=== PATIENT | female | born 2000 | race Caucasian/White ===

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

== ENCOUNTER 2018-04-10 20:39 | Emergency (ER) | payer BC ==
[~2018-04-10] VITALS: Ht 157.5 cm; Wt 54.4 kg
[2018-04-10 21:03] VITALS: BP_SYST 110
[2018-04-10] MEDS ORDERED: IBUPROFEN 800 MG TABLET PO ONE (21:30)
[2018-04-10 22:05] VITALS: BP_SYST 113
== END 2018-04-10 22:05 | disposition home or self-care (01) ==
LOC: SED 20:39
DX: S93.401A Sprain of unspecified ligament of right ankle, initial encounter (principal); Z88.6 Allergy status to analgesic agent; W18.39XA Other fall on same level, initial encounter; Y93.89 Activity, other specified; Y92.89 Other specified places as the place of occurrence of the external cause; Y99.8 Other external cause status
CPT/HCPCS: 99284

== ENCOUNTER 2018-05-31 11:08 | Emergency (ER) | payer BC ==
[~2018-05-31] VITALS: Ht 157.5 cm; Wt 54.4 kg
[2018-05-31 11:23] VITALS: BP_SYST 123
[2018-05-31 12:15] LABS: BASOPHILS % (AUTO) 0.5 % (0.0-2.0); EOSINOPHILS % (AUTO) 0.2 % (0.0-4.0); HEMATOCRIT 43.6 % (36-48); HEMOGLOBIN 14.4 g/dL (12.0-16.0); LYMPHOCYTES # (AUTO) 1.6 K/uL (1.0-5.5); LYMPHOCYTES % (AUTO) 27.4 % (20.5-51.5); MEAN CORPUSCULAR HEMOGLOBIN 31 pg (27-31); MEAN CORPUSCULAR HGB CONC 33 % (32-36); MEAN CORPUSCULAR VOLUME 93 fL (79.0-98.0); MONOCYTES # (AUTO) 0.5 K/uL (0.0-1.0); MONOCYTES % (AUTO) 8.4 % (1.7-9.3); NEUTROPHILS # (AUTO) 3.6 K/uL (1.8-7.7); NEUTROPHILS % (AUTO) 63.5 % (40.0-70.0); PLATELET COUNT (AUTO) 206 K/uL (130-430); RED BLOOD CELL COUNT(AUTO) 4.68 MIL/uL (4.2-6.2); RED CELL DISTRIBUTION WIDTH 12.1 % (9.0-15.0); WHITE BLOOD COUNT (AUTO) 5.7 K/uL (4.5-11.0)
[2018-05-31 12:24] LABS: CALCIUM 9.5 mg/dL (8.4-11.0); CREATININE 0.79 mg/dL (0.55-1.30); POTASSIUM 3.9 mmol/L (3.5-5.1)
[2018-05-31 12:25] LABS: BILIRUBIN,URINE NEGATIVE (NEGATIVE); BLOOD, URINE NEGATIVE (NEGATIVE); CLARITY/URINE CLEAR (CLEAR); COLOR,URINE YELLOW (YELLOW); GLUCOSE,URINE NEGATIVE (NEGATIVE); KETONES,URINE NEGATIVE (NEGATIVE); LEUKOCYTE ESTERASE ,URINE NEGATIVE (NEGATIVE); NITRITE, URINE NEGATIVE (NEGATIVE); PROTEIN URINE NEGATIVE (NEGATIVE); UROBILINOGEN,URINE 0.2 (0.2-1.0)
[2018-05-31] MEDS: IBUPROFEN 800 MG TABLET PO ONE (13:22)
[2018-05-31 14:30] VITALS: BP_SYST 120
== END 2018-05-31 14:30 | disposition home or self-care (01) ==
LOC: SED 11:08
DX: N83.209 Unspecified ovarian cyst, unspecified side (principal); Z88.6 Allergy status to analgesic agent
CPT/HCPCS: 36415; 76830-TC; 76857; 80048; 81003; 81025; 85025; 99284

== ENCOUNTER 2018-08-28 14:52 | Emergency (ER) | payer BC ==
[~2018-08-28] VITALS: Ht 157.5 cm; Wt 54.4 kg
[2018-08-28 15:15] VITALS: BP_SYST 124
[2018-08-28] MEDS ORDERED: NACL 0.9% 1,000 ML IV ONE (15:30)
[2018-08-28] MEDS ORDERED: KETOROLAC TROMETHAMINE 15 MG VIAL IVP ONE (15:30)
[2018-08-28] MEDS ORDERED: ONDANSETRON HCL 4 MG/2 ML VIAL IVP ONE (15:30)
[2018-08-28 15:36] LABS: BILIRUBIN,URINE NEGATIVE (NEGATIVE); BLOOD, URINE 3+ (NEGATIVE); CLARITY/URINE CLEAR (CLEAR); COLOR,URINE YELLOW (YELLOW); GLUCOSE,URINE NEGATIVE (NEGATIVE); KETONES,URINE 1+ (NEGATIVE); LEUKOCYTE ESTERASE ,URINE NEGATIVE (NEGATIVE); NITRITE, URINE NEGATIVE (NEGATIVE); PH,URINE 5.5 (5.0-8.0); PROTEIN URINE TRACE (NEGATIVE); UROBILINOGEN,URINE 0.2 (0.2-1.0)
[2018-08-28 15:42] LABS: RBC,URINE >100 /HPF (0-3)
[2018-08-28 15:43] LABS: BACTERIA,URINE FEW /HPF (None Seen); WBC,URINE 0-3 /HPF (0-3)
[2018-08-28 16:04] LABS: HEMATOCRIT 41.3 % (36-48); HEMOGLOBIN 14.3 g/dL (12.0-16.0); MEAN CORPUSCULAR HEMOGLOBIN 32 pg (27-31); MEAN CORPUSCULAR VOLUME 91 fL (79.0-98.0); RED BLOOD CELL COUNT(AUTO) 4.52 MIL/uL (4.2-6.2); WHITE BLOOD COUNT (AUTO) 8.8 K/uL (4.5-11.0)
[2018-08-28 16:05] LABS: BASOPHILS % (AUTO) 0.3 % (0.0-2.0); EOSINOPHILS % (AUTO) 0.1 % (0.0-4.0); LYMPHOCYTES # (AUTO) 1.3 K/uL (1.0-5.5); MEAN CORPUSCULAR HGB CONC 35 % (32-36); MONOCYTES # (AUTO) 0.6 K/uL (0.0-1.0); MONOCYTES % (AUTO) 6.8 % (1.7-9.3); NEUTROPHILS # (AUTO) 6.9 K/uL (1.8-7.7); NEUTROPHILS % (AUTO) 77.8 % (40.0-70.0); PLATELET COUNT (AUTO) 258 K/uL (130-430); RED CELL DISTRIBUTION WIDTH 12.7 % (9.0-15.0)
[2018-08-28 16:11] LABS: PROTHROMBIN TIME 10.4 SECS (9.5-12.5)
[2018-08-28 16:12] LABS: CALCIUM 9.4 mg/dL (8.4-11.0); CREATININE 0.81 mg/dL (0.55-1.30); POTASSIUM 3.7 mmol/L (3.5-5.1)
[2018-08-28 16:17] LABS: ALBUMIN 4.3 g/dL (3.4-4.8); TOTAL BILIRUBIN 0.8 mg/dL (0.0-1.0)
[2018-08-28] MEDS ORDERED: HYDROcodone/ACETAMIN 5-325 MG TAB (NORCO/ VICODIN) PO ONE (16:45)
[2018-08-28 17:48] VITALS: BP_SYST 103
== END 2018-08-28 17:48 | disposition home or self-care (01) ==
LOC: SED 14:52
DX: R31.9 Hematuria, unspecified (principal); R10.9 Unspecified abdominal pain; Z88.6 Allergy status to analgesic agent
CPT/HCPCS: 36415; 74176; 80053; 81000; 83690; 85025; 85610; 96374; 96375; 99284; J1885; J2405; J7030

== ENCOUNTER 2018-12-29 22:14 | Emergency (ER) | payer BC ==
[~2018-12-29] VITALS: Ht 157.5 cm; Wt 63.5 kg
[2018-12-29 22:20] VITALS: BP_SYST 120
--- NOTE | 2018-12-29 22:40 | NUR ---
Patient to ER bed 2 to gown for evaluation. Side rails up.
--- NOTE | 2018-12-29 22:42 | NUR ---
Pt C/O of nausea and gradual onset of lower back pain x 2 weeks. Pt states she is 1 week late on her period and urine has been collected of test. Pt denies any painful urination, frequency, vomiting, fever or any other symptoms at this time. Will continue to monitor.
--- NOTE | 2018-12-29 23:10 | NUR ---
ER Dr. Piper at bedside examining patient.
[2018-12-29] MEDS ORDERED: KETOROLAC TROMETHAMINE 60 MG/2 ML VIAL IM ONE (23:30)
--- NOTE | 2018-12-29 23:40 | NUR ---
Pt states the Toradol is effective and her back pain is now 2/10. Will continue to monitor
--- NOTE | 2018-12-30 | NUR ---
Patient given written and verbal discharge instructions and verbalizes understanding. ER MD discussed with patient the results and treatment provided. Patient in stable condition. ID arm band removed. Rx of Naprosyn given. Patient educated on pain management and to follow up with PMD. Pain Scale 0. Opportunity for questions provided and answered. Medication side effect fact sheet provided.
[2018-12-30 00:02] VITALS: BP_SYST 120
[2018-12-30 00:21] LABS: BILIRUBIN,URINE NEGATIVE (NEGATIVE); BLOOD, URINE NEGATIVE (NEGATIVE); CLARITY/URINE CLEAR (CLEAR); COLOR,URINE YELLOW (YELLOW); GLUCOSE,URINE NEGATIVE (NEGATIVE); KETONES,URINE NEGATIVE (NEGATIVE); LEUKOCYTE ESTERASE ,URINE NEGATIVE (NEGATIVE); NITRITE, URINE NEGATIVE (NEGATIVE); PROTEIN URINE NEGATIVE (NEGATIVE); UROBILINOGEN,URINE 0.2 (0.2-1.0)
== END 2018-12-30 | disposition home or self-care (01) ==
LOC: SED 22:14
DX: S33.5XXA Sprain of ligaments of lumbar spine, initial encounter (principal); Z88.6 Allergy status to analgesic agent; X58.XXXA Exposure to other specified factors, initial encounter; Y93.89 Activity, other specified; Y92.89 Other specified places as the place of occurrence of the external cause; Y99.8 Other external cause status
CPT/HCPCS: 81003; 81025; 96372; 99283; J1885

== ENCOUNTER 2019-02-08 20:44 | Emergency (ER) | payer BC ==
[~2019-02-08] VITALS: Ht 160 cm; Wt 59.0 kg
[2019-02-08 20:50] VITALS: BP_SYST 111
[2019-02-08] MEDS ORDERED: LORazepam 1 MG TABLET PO ONE (21:15)
[2019-02-08 21:43] VITALS: BP_SYST 111
== END 2019-02-08 21:43 | disposition home or self-care (01) ==
LOC: SED 20:44
DX: F41.9 Anxiety disorder, unspecified (principal); R07.89 Other chest pain; Z88.6 Allergy status to analgesic agent
CPT/HCPCS: 99284

== ENCOUNTER 2019-05-16 17:43 | Emergency (ER) | payer BC ==
[~2019-05-16] VITALS: Ht 157.5 cm; Wt 63.0 kg
[2019-05-16 17:45] VITALS: BP_SYST 102
--- NOTE | 2019-05-16 17:45 | NUR ---
Patient triaged and placed in waiting room. VSS and patient appears in no acute distress at this time. Accompanied by SPOUSE, awaiting available bed, and MD notified of need for MSE.
[2019-05-16 18:53] LABS: BASOPHILS % (AUTO) 0.3 % (0.0-2.0); EOSINOPHILS % (AUTO) 0.2 % (0.0-4.0); HEMOGLOBIN 12.5 g/dL (12.0-16.0); LYMPHOCYTES # (AUTO) 1.2 K/uL (1.0-5.5); MEAN CORPUSCULAR HEMOGLOBIN 33 pg (27-31); MEAN CORPUSCULAR HGB CONC 36 % (32-36); MEAN CORPUSCULAR VOLUME 92 fL (79.0-98.0); MONOCYTES # (AUTO) 0.6 K/uL (0.0-1.0); MONOCYTES % (AUTO) 7.5 % (1.7-9.3); NEUTROPHILS # (AUTO) 6.5 K/uL (1.8-7.7); PLATELET COUNT (AUTO) 184 K/uL (130-430); RED BLOOD CELL COUNT(AUTO) 3.81 MIL/uL (4.2-6.2); RED CELL DISTRIBUTION WIDTH 12.9 % (9.0-15.0); WHITE BLOOD COUNT (AUTO) 8.3 K/uL (4.5-11.0)
--- NOTE | 2019-05-16 19:07 | NUR ---
Patient to ER bed 5 to gown for evaluation. Side rails up.
[2019-05-16 19:10] LABS: CREATININE 0.78 mg/dL (0.55-1.30); POTASSIUM 4.3 mmol/L (3.5-5.1)
[2019-05-16] MEDS ORDERED: NACL 0.9% 1,000 ML IV ONE (19:15)
[2019-05-16 19:20] LABS: BILIRUBIN,URINE NEGATIVE (NEGATIVE); BLOOD, URINE NEGATIVE (NEGATIVE); CLARITY/URINE CLEAR (CLEAR); COLOR,URINE YELLOW (YELLOW); GLUCOSE,URINE TRACE (NEGATIVE); KETONES,URINE 1+ (NEGATIVE); LEUKOCYTE ESTERASE ,URINE NEGATIVE (NEGATIVE); NITRITE, URINE NEGATIVE (NEGATIVE); PH,URINE 6.5 (5.0-8.0); PROTEIN URINE NEGATIVE (NEGATIVE)
[2019-05-16] MEDS ORDERED: ACETAMINOPHEN 500 MG TABLET PO ONE (19:30)
[2019-05-16 19:37] LABS: ALBUMIN 3.5 g/dL (3.4-4.8); TOTAL BILIRUBIN 0.4 mg/dL (0.0-1.0)
--- NOTE | 2019-05-16 20:05 | NUR ---
Dr. Kumari bedside for Pt eval
--- NOTE | 2019-05-16 20:15 | NUR ---
Pt BIB family to ED C/O sudden onset of syncope today at work. She reports that the episode lasted for a few seconds and was witnessed by her co-worker. She denies any head injury at the time since she was able to grab onto an object for support. No other complaints and or injuries noted VSS no s/s of acute distress Resting on gurney with rails up
[2019-05-16 20:42] VITALS: BP_SYST 132
--- NOTE | 2019-05-16 20:42 | NUR ---
Patient given written and verbal discharge instructions and verbalizes understanding. ER MD discussed with patient the results and treatment provided. Patient in stable condition. ID arm band removed. IV catheter removed intact and dressing applied, no active bleeding. Patient educated on pain management and to follow up with PMD. Pain Scale 0/10 Opportunity for questions provided and answered.
== END 2019-05-16 20:42 | disposition home or self-care (01) ==
LOC: SED 17:43
DX: O26.891 Other specified pregnancy related conditions, first trimester (principal); R55 Syncope and collapse; E86.0 Dehydration; Z3A.13 13 weeks gestation of pregnancy; Z88.5 Allergy status to narcotic agent
CPT/HCPCS: 36415; 76805; 80053; 81003; 81025; 84702; 85025; 86900; 86901; 93005; 99284; J7030

== ENCOUNTER 2019-07-03 18:11 | Observation (INO) | payer BC ==
[~2019-07-03] VITALS: Ht 157.5 cm; Wt 64.9 kg
== END 2019-07-03 19:00 | disposition home or self-care (01) ==
LOC: SPU 18:11
PROVIDERS: ADMIT Specialist; ATTEND Specialist
DX: O99.612 Diseases of the digestive system complicating pregnancy, second trimester (principal); K62.5 Hemorrhage of anus and rectum; Z3A.20 20 weeks gestation of pregnancy
CPT/HCPCS: G0378

== ENCOUNTER 2019-10-06 22:40 | Observation (INO) | payer BC | END 2019-10-07 00:20 | disposition home or self-care (01) | LOC: SPU 22:40 | PROVIDERS: ADMIT Obstetrics & Gynecology; ATTEND Obstetrics & Gynecology | DX: O62.9 Abnormality of forces of labor, unspecified (principal); Z3A.33 33 weeks gestation of pregnancy | CPT/HCPCS: 81002; G0378 ==

== ENCOUNTER 2020-03-30 10:06 | Emergency (ER) | payer BC ==
[~2020-03-30] VITALS: Ht 157.5 cm; Wt 72.6 kg
[2020-03-30 10:09] VITALS: BP_SYST 116
[2020-03-30] MEDS ORDERED: HYDROcodone/ACETAMIN 7.5-325 MG TAB PO ONE (10:45)
[2020-03-30] MEDS ORDERED: IBUPROFEN 800 MG TABLET PO ONE (10:45)
[2020-03-30] MEDS ORDERED: levoFLOXacin 500 MG TABLET PO ONE (10:45)
[2020-03-30 10:56] VITALS: BP_SYST 116
== END 2020-03-30 10:56 | disposition home or self-care (01) ==
LOC: SED 10:06
DX: N39.0 Urinary tract infection, site not specified (principal); M54.5 Low back pain; Z88.6 Allergy status to analgesic agent
CPT/HCPCS: 81002; 81025; 99284

== ENCOUNTER 2020-05-18 15:01 | Emergency (ER) | payer BC ==
[~2020-05-18] VITALS: Ht 157.5 cm; Wt 64.4 kg
[2020-05-18 15:06] VITALS: BP_SYST 130
--- NOTE | 2020-05-18 15:17 | NUR ---
AMBULATED TO BED 2
--- NOTE | 2020-05-18 15:20 | NUR ---
Pt bib from home with c/o left flank pain 8/10, hematuria and urinary retention x 2days. Reports h/o kidney stones. V/S stable, pt is afebrile. Currently resting in bed, will continue to monitor.
--- NOTE | 2020-05-18 15:47 | NUR ---
ER Dr. Ayala at bedside examining patient.
[2020-05-18] MEDS ORDERED: NACL 0.9% 1,000 ML IV ONE (16:00)
[2020-05-18] MEDS ORDERED: KETOROLAC TROMETHAMINE 30 MG VIAL IVP ONE (16:00)
[2020-05-18] MEDS ORDERED: ONDANSETRON HCL 4 MG/2 ML VIAL IVP ONE (16:00)
--- NOTE | 2020-05-18 16:41 | NUR ---
# 20 gauge angiocath placed to RAC. Use of asceptic technique. Opsite placed over site. Blood return noted. Blood for lab drawn from site. Flushed with 10 cc of normal saline. No evidence of infiltration noted. Patient tolerated well.
[2020-05-18 16:47] LABS: BASOPHILS % (AUTO) 0.6 % (0.0-2.0); EOSINOPHILS % (AUTO) 0.1 % (0.0-4.0); HEMATOCRIT 41.4 % (36-48); HEMOGLOBIN 14.1 g/dL (12.0-16.0); LYMPHOCYTES # (AUTO) 1.3 K/uL (1.0-5.5); MEAN CORPUSCULAR HEMOGLOBIN 30 pg (27-31); MEAN CORPUSCULAR HGB CONC 34 % (32-36); MEAN CORPUSCULAR VOLUME 88 fL (79.0-98.0); MONOCYTES # (AUTO) 0.7 K/uL (0.0-1.0); MONOCYTES % (AUTO) 10.3 % (1.7-9.3); NEUTROPHILS # (AUTO) 4.4 K/uL (1.8-7.7); PLATELET COUNT (AUTO) 181 K/uL (130-430); RED BLOOD CELL COUNT(AUTO) 4.72 MIL/uL (4.2-6.2); RED CELL DISTRIBUTION WIDTH 13.7 % (9.0-15.0); WHITE BLOOD COUNT (AUTO) 6.4 K/uL (4.8-10.8)
[2020-05-18 17:16] LABS: POTASSIUM 3.8 mmol/L (3.5-5.1)
[2020-05-18 17:17] LABS: ALBUMIN 4.4 g/dL (3.4-4.8); CREATININE 0.77 mg/dL (0.55-1.30); TOTAL BILIRUBIN 0.8 mg/dL (0.0-1.0)
--- NOTE | 2020-05-18 18:58 | NUR ---
Care of patient endorsed to JARED Walker. Pt currently resting in bed, no distress noted.
--- NOTE | 2020-05-18 19:45 | NUR ---
Patient resting quietly. No acute distress noted. No voiced complaints at this time
[2020-05-18 21:10] VITALS: BP_SYST 128
--- NOTE | 2020-05-18 21:10 | NUR ---
Patient given written and verbal discharge instructions and verbalizes understanding. ER MD discussed with patient the results and treatment provided. Patient in stable condition. ID arm band removed. IV catheter removed intact and dressing applied, no active bleeding. Rx of motrin and norco given. Patient educated on pain management and to follow up with PMD. Pain Scale 0/10. Opportunity for questions provided and answered. Medication side effect fact sheet provided.
--- NOTE | 2020-05-18 21:10 | NUR ---
patient instructed to follow up with primary care provider to received referral to urology. patient given urine strainers and educated on how to properly use them.
== END 2020-05-18 21:10 | disposition home or self-care (01) ==
LOC: SED 15:01
DX: R10.31 Right lower quadrant pain (principal); Z88.6 Allergy status to analgesic agent
CPT/HCPCS: 36415; 74177; 76376; 76856; 80053; 81002; 81025; 85025; 96361; 96374; 96375; 99285; J1885; J2405; J7030; Q9967

== ENCOUNTER 2021-06-25 10:21 | Emergency (ER) | payer BC ==
[~2021-06-25] VITALS: Ht 157.5 cm; Wt 52.2 kg
[2021-06-25 10:33] VITALS: BP_SYST 112
[2021-06-25] MEDS: MAG HYDROX/AL HYDROX/SIMETH 30 ML, LIDOCAINE VISCOUS 2% 15ML (PO) 15 ML, DICYCLOMINE HC... PO ONE ×3 (10:52)
[2021-06-25 10:57] LABS: BASOPHILS % (AUTO) 0.6 % (0.0-2.0); EOSINOPHILS % (AUTO) 0.7 % (0.0-4.0); HEMATOCRIT 40.4 % (36-48); HEMOGLOBIN 13.7 g/dL (12.0-16.0); LYMPHOCYTES # (AUTO) 1.1 K/uL (1.0-5.5); LYMPHOCYTES % (AUTO) 20.1 % (20.5-51.5); MEAN CORPUSCULAR HEMOGLOBIN 30 pg (27-31); MEAN CORPUSCULAR HGB CONC 34 % (32-36); MEAN CORPUSCULAR VOLUME 89 fL (79.0-98.0); MONOCYTES # (AUTO) 0.5 K/uL (0.0-1.0); MONOCYTES % (AUTO) 9.9 % (1.7-9.3); NEUTROPHILS # (AUTO) 3.7 K/uL (1.8-7.7); NEUTROPHILS % (AUTO) 68.7 % (40.0-70.0); PLATELET COUNT (AUTO) 203 K/uL (130-430); RED BLOOD CELL COUNT(AUTO) 4.52 MIL/uL (4.2-6.2); RED CELL DISTRIBUTION WIDTH 13.5 % (9.0-15.0); WHITE BLOOD COUNT (AUTO) 5.4 K/uL (4.8-10.8)
[2021-06-25 11:05] LABS: CALCIUM 8.8 mg/dL (8.4-11.0); CREATININE 0.69 mg/dL (0.55-1.30); POTASSIUM 3.9 mmol/L (3.5-5.1)
[2021-06-25 11:10] LABS: ALBUMIN 4.1 g/dL (3.4-4.8); TOTAL BILIRUBIN 0.6 mg/dL (0.0-1.0)
[2021-06-25 11:20] LABS: BILIRUBIN,URINE NEGATIVE (NEGATIVE); BLOOD, URINE NEGATIVE (NEGATIVE); CLARITY/URINE CLEAR (CLEAR); COLOR,URINE YELLOW (YELLOW); GLUCOSE,URINE NEGATIVE (NEGATIVE); KETONES,URINE 1+ (NEGATIVE); LEUKOCYTE ESTERASE ,URINE NEGATIVE (NEGATIVE); NITRITE, URINE NEGATIVE (NEGATIVE); PH,URINE 5.5 (5.0-8.0); PROTEIN URINE NEGATIVE (NEGATIVE); UROBILINOGEN,URINE 0.2 (0.2-1.0)
[2021-06-25 11:52] LABS: ERYTHROCYTE SEDIMENTATION RATE 2 MM/HR (0-20)
[2021-06-25] MEDS ORDERED: POLY17PO4 PO (13:05)
[2021-06-25] MEDS ORDERED: OMEP20CA15 PO (13:05)
[2021-06-25] MEDS ORDERED: MAG1CAPS5 PO (13:05)
[2021-06-25] MEDS ORDERED: DOCU-144 PO (13:05)
[2021-06-25 13:35] VITALS: BP_SYST 110
== END 2021-06-25 13:36 | disposition home or self-care (01) ==
LOC: SED 10:21
DX: K29.00 Acute gastritis without bleeding (principal); K59.09 Other constipation; Z88.5 Allergy status to narcotic agent; Z79.899 Other long term (current) drug therapy
CPT/HCPCS: 36415; 74021; 80053; 81003; 81025; 83690; 85025; 85651; 99284; J2001

== ENCOUNTER 2023-02-27 16:26 | Emergency (ER) | payer BC ==
[~2023-02-27 16:26] MED LIST: DOCU-144 PO; MAG1CAPS5 PO; OMEP20CA15 PO; POLY17PO4 PO
[2023-02-27 16:35] VITALS: BP_SYST 125; PULSE 104; RESP 18; TEMP 98.3; O2SAT 99
[2023-02-27 16:38] VITALS: BP_SYST 125; PULSE 104; RESP 18; TEMP 98.3; O2SAT 99
== END 2023-02-27 16:38 | disposition home or self-care (01) ==
LOC: SED 16:26
DX: R07.9 Chest pain, unspecified (principal); F43.9 Reaction to severe stress, unspecified; Z88.5 Allergy status to narcotic agent; Z79.899 Other long term (current) drug therapy
CPT/HCPCS: 93005; 99283

== ENCOUNTER 2023-07-04 12:50 | Emergency (ER) | payer BC ==
[~2023-07-04] VITALS: Ht 157.5 cm; Wt 56.7 kg
[2023-07-04 12:50] VITALS: BP_SYST 105; PULSE 103; RESP 20; TEMP 99.2; O2SAT 99
[2023-07-04 14:39] LABS: BASOPHILS % (AUTO) 0.6 % (0.0-2.0); EOSINOPHILS % (AUTO) 0.1 % (0.0-4.0); HEMATOCRIT 37.6 % (36-48); HEMOGLOBIN 12.8 g/dL (12.0-16.0); LYMPHOCYTES # (AUTO) 0.7 K/uL (1.0-5.5); MEAN CORPUSCULAR HEMOGLOBIN 29 pg (27-31); MEAN CORPUSCULAR HGB CONC 34 % (32-36); MEAN CORPUSCULAR VOLUME 86 fL (79.0-98.0); MONOCYTES # (AUTO) 0.4 K/uL (0.0-1.0); MONOCYTES % (AUTO) 11.9 % (1.7-9.3); NEUTROPHILS % (AUTO) 65.4 % (40.0-70.0); PLATELET COUNT (AUTO) 139 K/uL (130-430); RED BLOOD CELL COUNT(AUTO) 4.39 MIL/uL (4.2-6.2); RED CELL DISTRIBUTION WIDTH 14.3 % (9.0-15.0); WHITE BLOOD COUNT (AUTO) 3.1 K/uL (4.8-10.8)
[2023-07-04 14:59] LABS: COVID19 ANTIGEN SOFIA FIA NEGATIVE (NEGATIVE)
[2023-07-04 15:00] LABS: INFLUENZA TYPE B NEGATIVE (NEGATIVE)
[2023-07-04 15:06] LABS: INFLUENZA TYPE A Positive (NEGATIVE)
[2023-07-04 15:21] LABS: SERUM HCG (QUALITATIVE) NEGATIVE (NEGATIVE)
[2023-07-04] MEDS ORDERED: BENZ100C92 PO (15:29)
[2023-07-04] MEDS ORDERED: IBUP-1969 PO (15:29)
[2023-07-04] MEDS ORDERED: OSEL75CA PO (15:29)
[2023-07-04 15:43] VITALS: BP_SYST 105; PULSE 103; RESP 20; TEMP 99.2; O2SAT 99
== END 2023-07-04 15:41 | disposition home or self-care (01) ==
LOC: SED 12:50
DX: J10.1 Influenza due to other identified influenza virus with other respiratory manifestations (principal); B97.89 Other viral agents as the cause of diseases classified elsewhere; R05.9 Cough, unspecified; R09.81 Nasal congestion; Z88.5 Allergy status to narcotic agent; Z79.899 Other long term (current) drug therapy; Z20.822 Contact with and (suspected) exposure to COVID-19
CPT/HCPCS: 36415; 71045; 84703; 85025; 99284